=== PATIENT | female | born 1970 | race Caucasian/White ===

== ENCOUNTER 2018-09-09 14:01 | Observation (INO) ==
[2018-09-09] MEDS ORDERED: ZOFRAN IV PRN (16:56)
[2018-09-09] MEDS ORDERED: ZOFRAN IM PRN (16:56)
[2018-09-09] MEDS ORDERED: DESYREL PO PRN (16:56)
[2018-09-09] MEDS ORDERED: MOTRIN PO PRN (16:56)
[2018-09-09] MEDS ORDERED: TUBERSOL ID ONE (16:56)
[2018-09-09] MEDS ORDERED: PHENOBARBITAL IV PRN (16:56)
[2018-09-09] MEDS ORDERED: NICOTINE GUM BUCCAL PRN (16:56)
[2018-09-09] MEDS ORDERED: IMODIUM PO PRN ×2 (16:56)
[2018-09-09] MEDS ORDERED: SEROQUEL PO PRN (16:56)
[2018-09-09] MEDS ORDERED: ZOFRAN ODT PO PRN (16:56)
[2018-09-09] MEDS ORDERED: SENOKOT PO PRN (16:56)
[2018-09-09] MEDS ORDERED: TYLENOL PO PRN (16:56)
[2018-09-09] MEDS ORDERED: D5W 1,000 ML IV PRN (16:56)
[2018-09-09] MEDS ORDERED: DULCOLAX PR PRN (16:56)
[2018-09-09] MEDS ORDERED: MAALOX PLUS LIQUID PO PRN (16:56)
[2018-09-09 17:16] LABS: UR AMPHETAMINES QUAL NONE DETECTED (NONE DETECT); UR BARBITUATES QUAL NONE DETECTED (NONE DETECT); UR BENZODIAZEPIN QUAL NONE DETECTED (NONE DETECT); UR CANNABINOIDS QUAL NONE DETECTED (NONE DETECT); UR COCAINE QUAL NONE DETECTED (NONE DETECT); UR METHADONE QUAL NONE DETECTED (NONE DETECT); UR METHAMPHETAMINE QUAL NONE DETECTED (NONE DETECT); UR OPIATES QUAL NONE DETECTED (NONE DETECT); UR OXYCODONE QUAL NONE DETECTED (NONE DETECT); UR PCP QUAL NONE DETECTED (NONE DETECT); UR PROPOXYPHENE QUAL NONE DETECTED (NONE DETECT); UR TCA QUAL NONE DETECTED (NONE DETECT)
[2018-09-09 17:29] LABS: HEMATOCRIT 43.2 % (37.0-47.0); HEMOGLOBIN 14.8 g/dL (12.0-16.0); MCH 30.6 PG (27-31); MCHC 34.3 g/dL (33-37); MCV 89.3 FL (81-99); MPV 9.6 FL (7.4-10.4); RBC 4.84 XMIL (4.2-5.4); RDW 14.3 % (11.5-14.5); WBC 12.73 X1000 (4.8-10.8)
[2018-09-09 17:38] LABS: INR 0.88; PROTIME 12.4 Seconds (11.0-16.0)
[2018-09-09] MEDS: NICODERM PATCH TD PRN (17:44)
[2018-09-09 17:54] LABS: AGAP 11; ALKALINE PHOSPHATASE 112 U/L (32-104); AMYLASE 81 U/L (20-200); BUN 15 mg/dL (8-22); CALCIUM 8.9 mg/dL (8.8-10.2); CHLORIDE 107 mmol/L (98-107); COSMO 280; CREATININE 0.9 mg/dL (0.5-0.9); ESTIMATED GFR > 60; GLUCOSE 92 mg/dL (70-104); GOT 10 U/L (10-30); GPT 11 U/L (10-36); LIPASE 100 U/L (13-60); POTASSIUM 4.6 mmol/L (3.5-5.1); SODIUM 140 mmol/L (136-145); TCO2 22 mmol/L (25-35); TOTAL BILIRUBIN < 0.15 mg/dL (0.20-1.00); TOTAL PROTEIN 6.6 g/dL (6.3-8.3)
[2018-09-09 18:02] LABS: URINE SOURCE CLEAN CATCH
[2018-09-09 18:07] LABS: BILIRUBIN URINE NEGATIVE (NEGATIVE); BLOOD URINE NEGATIVE (NEGATIVE); CLARITY CLEAR (CLEAR); COLOR YELLOW; GLUCOSE URINE NEGATIVE (NEGATIVE); KETONE URINE NEGATIVE (NEGATIVE); LEUKOCYTES URINE NEGATIVE (NEGATIVE); NITRITE URINE NEGATIVE (NEGATIVE); PROTEIN URINE NEGATIVE (NEGATIVE); UROBILINOGEN URINE NORMAL
[2018-09-09] MEDS ORDERED: ROBAXIN PO PRN (19:01)
[2018-09-09] MEDS ORDERED: BENTYL PO PRN (19:01)
[2018-09-09] MEDS ORDERED: SINEMET 25/100 PO PRN (19:01)
[2018-09-09] MEDS: SUBOXONE 2 MG/0.5 MG FILM SL SCH (20:11)
[2018-09-09] MEDS: ATARAX PO PRN (20:15)
[2018-09-09] MEDS: FLONASE NAS SCH (20:50)
[2018-09-09] MEDS: DESYREL PO SCH (20:50)
[2018-09-09] MEDS: LAMICTAL PO SCH (20:50)
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
[2018-09-10] MEDS: LIBRIUM PO PRN ×2 (00:29→17:02)
--- NOTE | 2018-09-10 05:41 | Diag Imaging Result Doc PS360 ---
EXAM: CT HEAD W/O CONTRAST HISTORY: fall- c/o hitting head TECHNIQUE: CT head without contrast COMPARISON: 09/13/2015 FINDINGS: No parenchymal hemorrhage. No epidural or subdural hematoma. No subarachnoid hemorrhage. No mass identified on this noncontrasted exam. No hydrocephalus. No skull fracture. IMPRESSION: No hemorrhage. Negative brain CT without contrast. This exam was performed using automated exposure control, adjustment of mA or kV according to patient size, and/or use of iterative reconstruction technique. Electronically signed by Ashok Walter 09/10/2018 5:39 AM
[2018-09-10] MEDS: PROTONIX PO SCH (06:05)
[2018-09-10] MEDS ORDERED: PROTONIX PO SCH (07:00)
[2018-09-10] MEDS: SUBOXONE 2 MG/0.5 MG FILM SL SCH ×2 (08:06→20:53)
[2018-09-10] MEDS: FLONASE NAS SCH ×2 (08:06→20:53)
[2018-09-10] MEDS: INDERAL PO SCH (08:07)
[2018-09-10] MEDS: SINGULAIR PO SCH (08:07)
[2018-09-10] MEDS: FOLIC ACID PO SCH (08:07)
[2018-09-10] MEDS: VITAMIN B-1 PO SCH (08:07)
[2018-09-10] MEDS: THERA M PLUS PO SCH (08:07)
[2018-09-10] MEDS: PRISTIQ ER PO SCH (08:12)
[2018-09-10] MEDS: PROVIGIL PO SCH (08:31)
[2018-09-10] MEDS: ROCEPHIN 1 GM in NS 50 ML IV SCH (08:31)
[2018-09-10] MEDS: NEURONTIN PO SCH ×3 (08:32→17:03)
[2018-09-10] MEDS: ATARAX PO PRN ×2 (11:53→21:02)
[2018-09-10] MEDS: NICODERM PATCH TD PRN (17:02)
--- NOTE | 2018-09-10 20:12 | PROGRESS NOTE ---
DATE: 09/10/2018 SUBJECTIVE: The patient has multiple complaints today. She appears at times to be an intentionally unpleasant individual, who somewhat again appears to be intentionally distracting in her answers. Initially upon admission to the hospital, she noted that she does not fall, however, last night as well as this morning. She states that she is an extreme fall risk and falls all the time, then tells me that she never falls. She is quite distracting in other answers as well. 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 Notes that she takes Neurontin 800 mg 3 times a day, although that was not listed on her previous medications. She is quite upset that she is not on Cymbalta and Pristiq. I discussed with her that is a potentially dangerous situation given the possibility of serotonin syndrome, then she states she is supposed to be off Cymbalta and on Pristiq. I discussed with her that we will start Pristiq this morning and then we had the same conversation of she is supposed to be on Cymbalta and Pristiq. Overall, she appears clinically to be improved from a withdrawal standpoint, although she has multiple complaints surrounding each joint and organ system. PHYSICAL EXAMINATION: Vital Signs: Temperature 97.5, pulse 85, respiratory 18, BP 111/55. General: Patient is in no current respiratory distress. Her speech goes from soft, normal and slow to very loud, very rapid. This changes quite frequently and quite quickly. HEENT: Normocephalic. Neck: Supple. CARDIOVASCULAR: Regular rate. Chest: Clear, nonlabored. Abdomen: Soft. Extremities: Moves all extremities. ASSESSMENT: 1. Nausea and vomiting. 2. Abdominal pain. 3. Myalgias. 4. Paresthesias. 5. Paroxysmal sweating. 6. Opiate abuse, withdrawal and stabilization. 7. Fibromyalgia. 8. Depression. 9. Chronic pain. 10. Others. PLAN: As noted above, discussed with patient that I will not keep her on Pristiq and Cymbalta. We have stopped the Cymbalta. We will continue Pristiq. Discussed with her that she is not going to get pain medication. Discussed that she does not need to get up without assistance as she states that she has a large fall risk. Discussed continuing to hold Luisa as it can cause drowsiness. Discussed that she is on several medications as that she is extremely adamant that she stay on that could cause drowsiness to include trazodone, Lamictal, Cymbalta, Pristiq and propranolol. We will continue to follow. Further orders as needed. cc: Mario Alberto Whitaker MD
[2018-09-10] MEDS: LAMICTAL PO SCH (20:54)
[2018-09-10] MEDS: DESYREL PO SCH (20:54)
[2018-09-11] MEDS: ATARAX PO PRN (05:09)
[2018-09-11 05:22] LABS: BILIRUBIN URINE NEGATIVE (NEGATIVE); BLOOD URINE NEGATIVE (NEGATIVE); CLARITY CLEAR (CLEAR); COLOR YELLOW; GLUCOSE URINE NEGATIVE (NEGATIVE); KETONE URINE NEGATIVE (NEGATIVE); LEUKOCYTES URINE NEGATIVE (NEGATIVE); NITRITE URINE NEGATIVE (NEGATIVE); PROTEIN URINE NEGATIVE (NEGATIVE); SP GRAVITY URINE 1.015; URINE SOURCE CATH; UROBILINOGEN URINE NORMAL
[2018-09-11 05:56] LABS: URINE BACTERIA 1+ /HFP; URINE EPITHELIAL CELLS <10 /HPF (<10); URINE RBC <10 /HPF (<10); URINE WBC <10 /HPF (<10)
[2018-09-11] MEDS: PROTONIX PO SCH (06:57)
[2018-09-11 07:34] VITALS: BP 99/58
[2018-09-11] MEDS ORDERED: SUBOXONE 8 MG/2 MG FILM SL SCH (09:00)
[2018-09-11] MEDS: ROCEPHIN 1 GM in NS 50 ML IV SCH (09:03)
[2018-09-11] MEDS: INDERAL PO SCH (09:04)
[2018-09-11] MEDS: SINGULAIR PO SCH (09:36)
[2018-09-11] MEDS: VITAMIN B-1 PO SCH (09:36)
[2018-09-11] MEDS: PRISTIQ ER PO SCH (09:36)
[2018-09-11] MEDS: FOLIC ACID PO SCH (09:36)
[2018-09-11] MEDS: NEURONTIN PO SCH (09:36)
[2018-09-11] MEDS: THERA M PLUS PO SCH ×2 (09:36→09:38)
[2018-09-11] MEDS: FLONASE NAS SCH (09:37)
[2018-09-11] MEDS: PROVIGIL PO SCH (09:55)
--- NOTE | 2018-09-12 04:20 | DISCHARGE SUMMARY ---
ADMISSION DATE: 09/10/2018 DISCHARGE DATE: 09/11/2018 DISCHARGE DIAGNOSIS: 1. Nausea, vomiting. 2. Abdominal pain. 3. Myalgias. 4. Paresthesias. 5. Paroxysmal sweating. 6. Opiate abuse, withdrawal and stabilization. 7. Chronic anxiety, depression. 8. Fibromyalgia. 9. Major depression. 10. Neurogenic bladder requiring in and out catheterization although patient admits that she will not do this at home. CONSULTATIONS: None. PROCEDURES: None. BRIEF HOSPITAL COURSE: Patient was admitted to the hospital, treated in usual fashion. Counseling was performed each day by myself. Thankfully, the patient had a rather uneventful hospital stay. She was placed on Suboxone. This was increased. She notes that her symptoms have completely resolved. States that she has been on Suboxone in the past and states that she is ready to go home. DISPOSITION: Patient will be discharged home. She will follow up outpatient with treatment facility of choice. Discussed with her that she needs outpatient life counseling as well as drug counseling. TIME SPENT: Greater than 30 minutes was spent in discharge care. cc: Mario Alberto Whitaker MD
== END 2018-09-11 11:07 | disposition home or self-care (01) ==
LOC: P.DIRADM 15:31 → INTOOBSV 15:31 → P.MEDSURG 15:47 → DIRADM 09-10 05:10 → P.MEDSURG 09-10 05:10 → UNDODISIN 09-11 11:07
PROVIDERS: ADMIT Family Medicine; ATTEND Family Medicine
CPT/HCPCS: 70450; 80053; 80104; 80301; 80305; 80307; 80320; 81001; 82055; 82150; 83690; 85027; 85610; 87081; 87430; A9270; G0431; G0434; G0477; G0480; G6040; J0696